=== PATIENT | male | born 1960 | race Caucasian/White ===

== ENCOUNTER 2022-08-26 10:13 | Emergency (ER) | payer MEDICARE, SELFPAY ==
[2022-08-26 10:22] VITALS: BP 125/75; PULSE 75; RESP 18; TEMP 36.4; O2SAT 96; BMI 29.8
--- NOTE | 2022-08-26 10:59 | XR_ITS ---
WS: [id number] Right knee, 3 views, 08/26/2022 Clinical Data: trauma/swelling Comparison: None. Findings: No fractures or dislocations are seen. The joint spaces are normal. The patella is intact. The soft t issues are unremarkable. XR/XR knee RT 3V* [id number] Impression: Negative right knee. Kellgren-Jose Luis Classification: NA
--- NOTE | 2022-08-26 11:00 | W.ED.LOWEXIN ---
HPI - Extremity Injury (Lower) General: Chief Complaint: Extremity Injury, Lower Stated Complaint: right leg injury Time Seen by Provider: 08/26/22 10:31 Source: patient Mode of arrival: wheelchair Limitations: no limitations History of Present Illness: Patient is a 61-year-old male who presents to ED today along with his for evaluation of a right lower leg injury. Patient states yesterday he was framing a wall of 2x4s when the wall came down and fell on top of him. He states the wall fell directly onto his leg. He thinks he may have twisted his knee on the way down. Reports significant pain and swelling surrounding the knee joint. He has no other injuries or complaints at this time. He can bear minimal weight. He is not complain of numbness, tingling, loss of sensation to the extremity. MD complaint: knee injury Onset (ago): day(s) (yesterday) Injury: Right: knee Place: home Severity: severe Relieving factors: immobilization Exacerbating factors: weight bearing and movement Context: fall and direct blow Associated symptoms: Reports inability to bear weight Other symptoms: none Review of Systems Const: Denies: fever(s), chills, body aches, fatigue or malaise Card: Denies: chest pain Resp: Denies: dyspnea Musc: Reports: joint pain (R knee) and joint swelling (R knee); Denies: neck pain, back pain, extremity pain, extremity swelling or joint redness Neuro: Denies: numbness in extremities, weakness in extremities or sensory changes Physical Exam Const: COMMON NORMALS: no acute distress, patient oriented x3, no limitations, alert and well nourished GENERAL APPEARANCE: cooperative ORIENTATION/CONSCIOUSNESS: Yes awake, Yes oriented to person, Yes oriented to place and Yes oriented to time Extremity: COMMON NORMALS: capillary refill normal, no calf tenderness and no pedal edema GENERAL: Yes normal exam except as noted RIGHT LOWER EXTREMITY: Yes knee joint OTHER: pt has fairly significant swelling through R knee joint mainly medially which correlates to maximum area of tenderness; limited ROM secondary to pain/swelling; no tight compartments noted proximally or distally; sensation intact; distal pulses/cap refill normal Neuro: COMMON NORMALS: patient oriented x3, moves all extremities, no focal motor deficits and no sensory deficits noted SENSORIUM/ORIENTATION: Yes alert, Yes oriented to person, Yes oriented to place and Yes oriented to time Skin: TRAUMA: no lacerations or abrasions Course Vital Signs: Vital signs: Vital Signs Temperature 97.6 F 08/26/22 10:22 Pulse Rate 75 08/26/22 10:22 Respiratory Rate 16 08/26/22 11:09 Blood Pressure 125/75 08/26/22 10:22 Pulse Oximetry 96 08/26/22 11:09 Oxygen Delivery Me thod 08/26/22 10:22 MDM - Extremity Injury (Lower) Medical Decision Making XR negative. Given patient's mechanism of injury and physical exam findings I have a high suspicion for internal derangement of his right knee. He will be placed in a knee immobilizer. Instructions for crutches and nonweightbearing and will refer him over to orthopedics for further evaluation and treatment. Lab Data Radiology Impressions Knee X-Ray 08/26/22 10:59 Impression: Negative right knee. Kellgren-Jose Luis Classification: NA Discharge Plan Discharge Patient Disposition: Home Clinical Impression: Acute internal derangement of knee Qualifiers: Laterality: right Qualified Code(s): M23.91 - Unspecified internal derangement of right knee Condition: Stable Prescriptions: New hydrocodone-acetaminophen 5-325 mg tablet 1 tab PO Q6H PRN (Reason: pain) Qty: 14 0RF Discharge Orders: Discharge ED (Routine); Ordered 08/26/22 Ordered By: Siri Bryson Patient Instructions: Opioid Safety, Pain Management Activity Restrictions/Additional Instructions: As we discussed I want you to stay in the knee immobilizer and use the crutches until told otherwise by orthopedics. Case management should reach out to you soon to schedule you for this appointment. As we discussed you need to ice and elevate the knee as much as possible. Coding Level of Care Code ED Station Attendant for Raisa Fwailyn Exam Expanded Problem Focused
[2022-08-26 11:09] VITALS: RESP 16; O2SAT 96
[2022-08-26] MEDS: morphine 4 mg/mL SDV 1 mL IM (11:09)
--- NOTE | 2022-08-26 11:23 | PC.PHAR ---
[facility]ING ON [facility] FOR [facility] MEDICATION LIST
[2022-08-26 11:35] VITALS: BP 117/74; PULSE 70; O2SAT 93
[2022-08-26 11:48] VITALS: BP 127/72; PULSE 79; RESP 16; O2SAT 95
--- NOTE | 2022-08-26 13:02 | DCPLANNER ---
Addendum entered by Nevaeh Jennings 09/02/22 14:23: Patient had a follow up appointment scheduled with ortho - patient did attend appointment. Addendum entered by Nevaeh Jennings 08/27/22 15:22: Patient has a follow up appointment scheduled for Wednesday, September 02, 2022 at 10:[address] Darden at ortho. Clinic will call patient with appointment information. Original Note: branch account manager had message to schedule a follow up appointment for patient with ortho. branch account manager sent patients information to the front office staff at ortho. Patients information will be printed and reviewed. Clinic will call patient with appointment information.
== END 2022-08-26 11:51 | disposition home or self-care (01) ==
PROVIDERS: Emergency Provider Physician Assistant
DX: M23.91 Unspecified internal derangement of right knee (principal); W20.8XXA Other cause of strike by thrown, projected or falling object, initial encounter
CPT/HCPCS: 29530; 73562; 96372; 99284; E0114; J2270

== ENCOUNTER → 2022-09-02 10:24 | Outpatient (BNVA) | payer MEDICARE, SELFPAY | PROVIDERS: Referring Provider Physician Assistant; Visit Provider Orthopaedic Surgery | DX: M23.91 Unspecified internal derangement of right knee (principal); S89.91XA Unspecified injury of right lower leg, initial encounter; W23.0XXA Caught, crushed, jammed, or pinched between moving objects, initial encounter | CPT/HCPCS: 99203 ==

== ENCOUNTER → 2023-08-25 10:10 | Outpatient (BNVA) | payer MEDICARE, SELFPAY | PROVIDERS: PCP Nurse Practitioner Family; Visit Provider Nurse Practitioner Family | DX: I10 Essential (primary) hypertension (principal); Z12.5 Encounter for screening for malignant neoplasm of prostate; M10.9 Gout, unspecified; R73.03 Prediabetes; K21.9 Gastro-esophageal reflux disease without esophagitis; M1A.9XX0 Chronic gout, unspecified, without tophus (tophi); E78.5 Hyperlipidemia, unspecified; M54.6 Pain in thoracic spine; G89.29 Other chronic pain; G47.33 Obstructive sleep apnea (adult) (pediatric) | CPT/HCPCS: 80053; 80061; 82607; 83036; 83735; 84443; 84550; 85025; G0103 ==

== ENCOUNTER 2023-12-21 10:00 | Outpatient (CLI) | payer MEDICARE, SELFPAY | END 2023-12-21 10:01 | disposition home or self-care (01) | LOC: SLEEP 12-22 10:03 | PROVIDERS: PCP Nurse Practitioner Family; Visit Provider Nurse Practitioner Family | DX: G47.33 Obstructive sleep apnea (adult) (pediatric) (principal); G47.36 Sleep related hypoventilation in conditions classified elsewhere | CPT/HCPCS: G0399 ==

== ENCOUNTER → 2024-01-04 09:37 | Outpatient (BNVA) | payer MEDICARE, SELFPAY | PROVIDERS: PCP Nurse Practitioner Family; Visit Provider Nurse Practitioner Family | DX: R73.03 Prediabetes (principal); E78.5 Hyperlipidemia, unspecified | CPT/HCPCS: 80053; 80061; 83036; 85025 ==

== ENCOUNTER 2024-03-16 07:46 | Outpatient (CLI) | payer MEDICARE, SELFPAY ==
--- NOTE | 2024-03-16 08:00 | US_ITS ---
WS: [id number] RIGHT UPPER QUADRANT ULTRASOUND HISTORY: R10.11 - Right upper quadrant pain COMPARISON: None available. Liver: 21.3 cm in length. Significantly enlarged liver with mild hepatic steatosis. No mass or bile d uct dilatation. Portal Vein: Normal hepatopetal flow with monophasic waveform. Gallbladder: Normally distended gallbladder with no stones or wall thickening. CBD: 0.5 cm Pancreas: Normal size and echogenicity. Right kidney: 11.7 cm in length. Normal size kidney. There is a cortical cyst exophytic from the supe rior pole measuring 0.9 x 1.4 x 1.0 cm. Aorta and IVC: Unremarkable abdominal aorta and IVC. No ascites. US/US gall bladder [id number] IMPRESSION: 1. Normal gallbladder. 2. Significantly enlarged liver with mild hepatic steatosis. 3. No hepatobiliary dilatation. 4. Simple cyst RIGHT kidney.
== END 2024-03-16 07:47 | disposition home or self-care (01) ==
PROVIDERS: PCP Nurse Practitioner Family; Visit Provider Nurse Practitioner Family
DX: R10.11 Right upper quadrant pain (principal); R16.0 Hepatomegaly, not elsewhere classified; N28.1 Cyst of kidney, acquired
CPT/HCPCS: 76705

== ENCOUNTER → 2024-03-17 08:22 | Outpatient (BNVA) | payer MEDICARE, SELFPAY | PROVIDERS: PCP Nurse Practitioner Family; Visit Provider Nurse Practitioner Family | DX: R16.0 Hepatomegaly, not elsewhere classified (principal); Z79.899 Other long term (current) drug therapy | CPT/HCPCS: 80053; 86705; 86706; 86709; 86803; 87340 ==

== ENCOUNTER → 2024-09-26 14:24 | Outpatient (BNVA) | payer MEDICARE, SELFPAY | PROVIDERS: Family Provider Nurse Practitioner Family; PCP Nurse Practitioner Family; Visit Provider Nurse Practitioner Family | DX: N12 Tubulo-interstitial nephritis, not specified as acute or chronic (principal) | CPT/HCPCS: 81000 ==

== ENCOUNTER → 2024-09-28 11:28 | Outpatient (BNVA) | payer MEDICARE, SELFPAY | PROVIDERS: Family Provider Nurse Practitioner Family; PCP Nurse Practitioner Family; Visit Provider Nurse Practitioner Family | DX: N12 Tubulo-interstitial nephritis, not specified as acute or chronic (principal) | CPT/HCPCS: 87086 ==

== ENCOUNTER → 2024-11-30 10:27 | Outpatient (BNVA) | payer MEDICARE, SELFPAY | PROVIDERS: Family Provider Nurse Practitioner Family; PCP Nurse Practitioner Family; Visit Provider Nurse Practitioner Family | DX: I10 Essential (primary) hypertension (principal); R06.02 Shortness of breath; R73.03 Prediabetes; E78.5 Hyperlipidemia, unspecified; Z12.5 Encounter for screening for malignant neoplasm of prostate; M1A.9XX0 Chronic gout, unspecified, without tophus (tophi) | CPT/HCPCS: 80053; 80061; 82040; 83036; 84270; 84403; 84443; 84550; 85025; G0103 ==

== ENCOUNTER → 2025-05-18 08:40 | Outpatient (BNVA) | payer MEDICARE, SELFPAY | PROVIDERS: PCP Nurse Practitioner Family; Visit Provider Nurse Practitioner Family | DX: I10 Essential (primary) hypertension (principal); E78.5 Hyperlipidemia, unspecified; R73.03 Prediabetes; M1A.9XX0 Chronic gout, unspecified, without tophus (tophi) | CPT/HCPCS: 80053; 80061; 82607; 83036; 83735; 84443; 84550; 85025 ==

== ENCOUNTER 2025-07-17 06:59 | Outpatient (CLI) | payer MEDICARE, SELFPAY ==
--- NOTE | 2025-07-17 07:14 | USR_ITS ---
PROCEDURE INFORMATION: Exam: US Abdomen; Limited Exam date and time: 07/17/2025 7:18 AM Age: 64 years old Clinical indication: Abnormal findings; Abnormal lab test; Elevated liver enzymes; Additional info: Elevated lft's TECHNIQUE: Imaging protocol: Real time ultrasound of the abdomen with image documentation. Limited exam focused on the region of clinical interest. COMPARISON: US gall bladder [id number] 03/16/2024 7:57 AM FINDINGS: Liver: 21.7 cm enlarged liver. Gallbladder: No gallstone. Biliary ducts: Common bile duct measures 3 mm. Right kidney: Right kidney 12.6 x 4.8 x 5.3 cm. Lower pole simple cyst 1 x 1 x 0.8 cm. Inferior vena cava: Visualized abdominal inferior vena cava and aorta are within normal limits. Portal venous: Main portal vein is patent with hepatopetal flow. Main portal vein measures 1.3 cm in diameter. US/US liver [id number] IMPRESSION: 1. Hepatomegaly with fatty changes. 2. Main portal vein measures 1.3 cm in diameter. Early portal hypertension can not be excluded. Clinical correlation is advised.
== END 2025-07-17 07:00 | disposition home or self-care (01) ==
LOC: RAD 07:04
PROVIDERS: PCP Nurse Practitioner Family; Visit Provider Nurse Practitioner Family
DX: R74.01 Elevation of levels of liver transaminase levels (principal); R16.0 Hepatomegaly, not elsewhere classified; K76.0 Fatty (change of) liver, not elsewhere classified; K76.6 Portal hypertension
CPT/HCPCS: 76705